=== PATIENT | female | born 1995 | race Caucasian/White ===

== ENCOUNTER 2019-08-03 20:09 | Emergency (ER) | payer OTHER ==
[~2019-08-03] VITALS: Ht 160 cm; Wt 63.5 kg
[2019-08-03] MEDS ORDERED: IMURAN50 MG (20:29)
[2019-08-03] MEDS ORDERED: PREDNISONE5 M1 (20:29)
[2019-08-03] MEDS ORDERED: PLAQUENIL (20:30)
[2019-08-03] MEDS ORDERED: IPRAT-ALBUT 0.5-3 ML IH (21:34)
[2019-08-03] MEDS ORDERED: ZITHROMAX500 MG PO (21:34)
[2019-08-03] MEDS ORDERED: TUSNEL LIQUID178 ML PO (21:34)
== END 2019-08-03 21:59 | disposition home or self-care (01) ==
LOC: ER 20:09
DX: J06.9 Acute upper respiratory infection, unspecified (principal)